=== PATIENT | female | born 1955 | race Caucasian/White ===

== ENCOUNTER → 2018-07-15 10:45 | Outpatient (CLI) | payer OTHER, SELFPAY ==
[2018-07-15 12:12] LABS: Add Manual Diff / Slide Review NO; Basophils Percent Auto 0.9 % (0-2); Hematocrit 41.5 % (36-46); Lymphocytes Percent Auto 38.1 % (25-40); Mean Corpuscular HGB Conc 33.8 % (30-36); Mean Corpuscular Hemoglobin 31.8 PG (26-34); Mean Corpuscular Volume 94.1 fL (80-100); Monocytes Percent Auto 7.6 % (3-14); Neutrophils Absolute Auto 2400 /uL (3000-5900); Neutrophils Percent Auto 50.4 % (50-75); Platelet Count 219 X10^3/uL (150-400); Red Blood Cell Count 4.41 X10^6/uL (4.0-5.2); White Blood Cell Count 4.9 X10^3/uL (4.5-11.0)
[2018-07-15 12:30] LABS: Alanine Aminotransferase 39 IU/L (9-52); Albumin 4.2 g/dL (3.5-5.0); Albumin Globulin Ratio 1.9 (1.0-2.8); Alkaline Phosphatase 50 U/L (38-126); Aspartate Aminotransferase 21 IU/L (14-36); BUN Creatinine Ratio 27.1 (6-22); Bilirubin Total 0.9 mg/dL (0.2-1.3); Blood Urea Nitrogen 19 mg/dL (7-17); Calcium 8.8 mg/dL (8.4-10.2); Carbon Dioxide 29 mmol/L (22-32); Chloride 104 mmol/L (98-107); Cholesterol 188 mg/dL (140-199); Estimated Glomerular Filt Rate > 60.0 mL/min (>60); Globulin 2.2 g/dL (1.7-4.1); Glucose 102 mg/dL (80-110); HDL Cholesterol 73 mg/dL (40-60); HEMOLYSIS < 15 (0-50); LDL Cholesterol Calculated 91 mg/dL (<100); Potassium 4.2 mmol/L (3.4-5.1); Sodium 143 mmol/L (137-145); Total Protein 6.4 g/dL (6.3-8.2); Triglycerides 121 mg/dL (35-150)
[2018-07-15 12:56] LABS: TSH w/ Reflex to FT4 0.45 uIU/mL (0.47-4.68)
[2018-07-15 13:31] LABS: Free T4, Direct Thyroxine 0.72 ng/dL (0.78-2.19)
== END ==
PROVIDERS: PCP Family Medicine; Visit Provider Family Medicine
DX: Z00.00 Encounter for general adult medical examination without abnormal findings (principal); E78.2 Mixed hyperlipidemia
CPT/HCPCS: 36415; 80053; 80061; 84439; 84443; 85025

== ENCOUNTER → 2019-02-25 10:30 | Outpatient (CLI) | payer OTHER, SELFPAY ==
[2019-02-25 12:17] LABS: Free T4, Direct Thyroxine 0.76 ng/dL (0.78-2.19)
[2019-02-25 12:31] LABS: Thyroid Stimulating Hormone 0.35 uIU/mL (0.47-4.68)
== END ==
PROVIDERS: PCP Family Medicine; Visit Provider Family Medicine
DX: R79.89 Other specified abnormal findings of blood chemistry (principal)
CPT/HCPCS: 36415; 84439; 84443; 84481

== ENCOUNTER → 2019-03-05 11:58 | Outpatient (CLI) | payer OTHER, SELFPAY ==
--- NOTE | 2019-03-05 11:59 | DI.US.S_ITS ---
PROCEDURE: US THYROID INDICATIONS: LOW THYROXINE AND LOW TSH TECHNIQUE: Real-time scanning was performed of the thyroid gland, with image documentation. COMPARISON: None. FINDINGS: Right: The right thyroid lobe measures 1.9 x 1.9 x 4.0 cm. At the upper right thyroid lobe there is a lobulated nodule which is hypoechoic, sharply demarcated, and contains several microcalcifications measuring up to 1.8 x 1.9 x 1.9 cm. The remainder of the thyroid echotexture is normal. Left: The left thyroid lobe measures up to 1.2 x 1.3 x 4.2 cm and at the junction of the middle and upper thirds of the left thyroid parenchyma there is a small ovoid nodule that measures only 2 x 3 x 4 mm. This is predominantly cystic, hypoechoic, smoothly marginated and free of calcification. Isthmus: 4 mm, normal in appearance. IMPRESSION: The upper lobe right-sided thyroid nodule would warrant fine needle cytology aspiration if clinically desired. The left thyroid nodule is of such a small size the no biopsy would be recommended. The thyroid glandular parenchymal appearance elsewhere appears normal. No adjacent adenopathy is seen. Dictated by: Bernard Rubio M.D. on 03/05/2019 at 17:27 Approved by: Bernard Rubio M.D. on 03/05/2019 at 17:30
== END ==
PROVIDERS: PCP Family Medicine; Visit Provider Family Medicine
DX: E04.2 Nontoxic multinodular goiter (principal); R94.6 Abnormal results of thyroid function studies; R79.89 Other specified abnormal findings of blood chemistry
CPT/HCPCS: 76536

== ENCOUNTER → 2019-03-29 10:02 | Outpatient (CLI) | payer OTHER, SELFPAY | PROVIDERS: PCP Family Medicine; Visit Provider Family Medicine | DX: E04.1 Nontoxic single thyroid nodule (principal) ==

== ENCOUNTER → 2019-04-02 09:35 | Outpatient (CLI) | payer OTHER, SELFPAY ==
--- NOTE | 2019-04-02 | DI.US.S_ITS ---
PROCEDURE: US FINE NEEDLE ASPIRATION INDICATIONS: RT THYROID NODULE TECHNIQUE: The indications, alternatives, benefits, risks, and complications of the procedure were explained to the patient. Written informed consent was obtained and placed in the chart. The thyroid region was examined sonographically and a site was chosen for ultrasound guided percutaneous sampling. The skin was prepared and draped in the usual fashion, and anesthetized with 1% lidocaine infiltrated from the skin down to the thyroid gland. Multiple passes were then performed, with contents emptied into an appropriate pathology specimen container. A bandage was applied to the area of access at completion of the study. COMPARISON: None. FINDINGS: Location(s) of lesion(s) sampled: Right superior thyroid nodule [place]: 25 gauge hypodermic needles. Number of passes: 8 total (2 with and 6 without aspiration) Medications: 1% lidocaine for local anaesthesia. Complications: None. IMPRESSION: Successful ultrasound-guided thyroid nodule fine needle aspiration, with cytology results pending. Please see chart below for management recommendations based on cytology results. [place] ReportingRecommendationsNon-diagnostic* Repeat US-guided FNA, with on-site cytology evaluation if possible. * Repeated non-diagnostic nodules without high suspicion US features: close observation vs surgical consult. * Consider surgery if nodule has high suspicion US features, grows >20% in 2 dimensions on followup, or patient has clinical risk factors for malignancy. Benign* If nodule has high suspicion US features: repeat US and FNA within 12 months. * If nodule has low to intermediate suspicion US features: repeat US at 12-24 months. If nodule grows (20% increase in at least 2 dimensions, with minimal increase of 2 mm or >50% change in volume), or development of new suspicious US features, then repeat FNA or continue followup. * If nodule has very low suspicion US features: followup US at >24 months. Atypia of undetermined significance, follicular lesion of undetermined significanceRepeat FNA, molecular testing, followup US, or surgical consult.Follicular neoplasm, suspicious for follicular neoplasmSurgical consult; also consider molecular testing. Suspicious for malignancySurgical consult.MalignantSurgical consult. Dictated by: Suresh Abad M.D. on 04/02/2019 at 13:24 Approved by: Suresh Abad M.D. on 04/02/2019 at 13:27
--- NOTE | 2019-04-02 | PATH_ITS ---
Note [facility] Accession Number: [id number] TESTS RESULT FLAG UNITS REF RANGE LAB Clinician Provided Cytology Information No. of containers..01 ThinPrep Vial No. of containers..04 Previously Prepared Cytology Slide 01 RIGHT THYROID NODULE DIAGNOSIS: 02 RIGHT THYROID NODULE: BENIGN. BETHESDA CATEGORY II. SPECIMEN CONSISTS OF BENIGN FOLLICULAR CELLS, HEMOSIDERIN-LADEN MACROPHAGES, COLLOID, AND BLOOD. THIS PATTERN IS CONSISTENT WITH A BENIGN FOLLICULAR NODULE. Pathologist ICD10: 02 E04.1 01 THE RIGHT THYROID LOBE MEASURES 1.9 X1.9 X 4.0 CM. AT THE UPPER RIGHT THYROID LOBE THERE IS A LOBULATED NODULE WHICH IS HYPOECHOIC, SHARPLY DEMARCATED, AND CONTAINS SEVERAL MICROCALCIFICATIONS MEASURING UP TO 1.8 X 1.9 X 1.9 CM. THE REMAINDER OF THE THYROID ECHOTEXTURE IS NORMAL. 02 Rika Meyers MD, Pathologist NPI- [id number] Sahil Franklin, Physician Office Specialist ([facility]) 01 20 CC, RED, CLEAR RECEIVED: 7 ALCOHOL FIXED AND 7 QUICK STAINED SLIDES WITH 1 RNA VIAL FOR FURTHER TESTING. /VDU FLAG LEGEND: L-Low Normal,H-High Normal,LL-Alert Low,HH-Alert High <-Panic Low,>-Panic High,A-Abnormal,AA-Critical Abnormal Performed at: 01 =Z [facility] [address] [place] [address] [address], [place] [address] Augie Nettles MD, 02 [facility] [id number] [address] [place] [address] Rika Meyers MD, Performed at: 01 [facility] [address] [place] [address], [place], [place] [id number] MD Augie Nettles MD Phone: [phone]
== END ==
PROVIDERS: PCP Family Medicine; Visit Provider Family Medicine
DX: E04.1 Nontoxic single thyroid nodule (principal)
CPT/HCPCS: 10005

== ENCOUNTER → 2019-04-28 12:28 | Outpatient (CLI) | payer OTHER, SELFPAY | PROVIDERS: PCP Family Medicine; Visit Provider Physician Assistant | DX: J02.9 Acute pharyngitis, unspecified (principal) | CPT/HCPCS: 87070 ==

== ENCOUNTER → 2019-06-30 17:12 | Outpatient (CLI) | payer OTHER, SELFPAY ==
--- NOTE | 2019-06-30 17:17 | DI.RAD.S_ITS ---
PROCEDURE: XR CHEST 2V INDICATIONS: Difficult swallowing TECHNIQUE: 2 views of the chest were acquired. COMPARISON: None. FINDINGS: Surgical changes and devices: None. Lungs and pleura: Lungs are clear. No pleural effusions or pneumothorax. Mediastinum: Mediastinal contours are normal. Heart size is normal. Bones and chest wall: No suspicious bony abnormalities. Degenerative changes are seen, which are worse involving the right shoulder. Soft tissues appear unremarkable. IMPRESSION: No imaging explanation is found for the patient's presenting history of difficulty swallowing. As clinically appropriate, consider dedicated, scheduled barium swallow examination. Dictated by: Onofre Wilson M.D. on 06/30/2019 at 16:41 Approved by: Onofre Wilson M.D. on 06/30/2019 at 16:42
== END ==
PROVIDERS: PCP Family Medicine; Visit Provider Nurse Practitioner
DX: R13.10 Dysphagia, unspecified (principal); K21.0 Gastro-esophageal reflux disease with esophagitis
CPT/HCPCS: 71046

== ENCOUNTER 2019-07-01 09:20 | Day surgery (SDC) | payer OTHER, SELFPAY ==
--- NOTE | 2019-07-01 | PATH_ITS ---
[facility] Accession Number: [id number] . 01 Material submitted: . esophagus, E-G Junction - GE JUNCTION ULCER . 02 Diagnosis: Gastroesophageal Junction, Ulcer, Biopsy: Ulcerated squamocolumnar junctional mucosa. Negative for intestinal metaplasia by alcian blue stain. Negative for fungal organisms by PAS stain. Negative for dysplasia and malignancy. MRV 07/05/2019 1509 Local . 02 Electronically signed: . Rika Meyers MD, Pathologist NPI- [id number] . 01 Gross description: . GE JUNCTION ULCER: Received in formalin are multiple fragment(s) of kay, soft tissue measuring 0.1 x 0.1 x 0.1 cm to 0.2 x 0.1 x 0.1 cm which is entirely submitted and submitted entirely in 1 cassette(s) /[facility] 07/01/2019 2047 Local . 02 Microscopic: . An AB/PAS stain was performed to evaluate for fungal organisms and intestinal metaplasia, and is negative for both, respectively. The control stain showed appropriate reactivity. . 02 Pathologist provided ICD-10: R10.9 . 02 CPT . 917898, 743090, 706712 Performed at: 01 [facility] [address] [facility] [address], [place], [place] [id number] MD Augie Nettles MD Phone: [phone] Performed at: 02 [facility] [address] [place], [place] [id number] MD Rika Meyers MD Phone: [phone]
[2019-07-01] MEDS: SODIUM CHLORIDE 0.9% 1,000 ML 200 ML IV (09:50)
[2019-07-01 09:51] VITALS: BP 187/84; PULSE 86; RESP 16; TEMP 37.2; O2SAT 100; BMI 27.4
--- NOTE | 2019-07-01 10:47 | PM.HP.1 ---
History of Present Illness History of Present Illness Date Patient Seen: 07/01/19 Time Patient Seen: 10:48 Chief complaint: [id number] Narrative: The patient is a woman who is been having trouble swallowing for about 8 months. Food would occasionally stick especially solids and she would take little sips of water and ultimately would pass. However yesterday she had a problem that required her to see a doctor and ultimately the obstructing food bolus did pass she is here for an EGD she was having symptoms of something was in her throat when she swallowed but that went away last night. Patient feels this in the area of her thoracic inlet. Patient History Medical History Colon polyps (Resolved 2013) Heartburn (Acute) Hypertension (Resolved 2008) Surgical History Anesthesia (Resolved) History of colonoscopy with polypectomy (Resolved 2013) History of lumpectomy (Resolved 1984) History of oral surgery (Resolved ~2005) History of partial hysterectomy (Resolved ~1985) Family History Father Cancer Heart disease Mother Cancer Social History household members: none Smoking Status: Never smoker Family & Social History Family History Father Cancer Heart disease Mother Cancer Social History: household members none Tobacco & Substance use: Smoking Status Never smoker Meds Home Medications and Allergies Home Medications Medication Instructions Recorded Confirmed Type Vitamin B-12 #0 10/08/16 06/30/19 History [probiotic] 2 cap PO DAILY #0 10/08/16 07/01/19 History [tumeric] 2 tab PO DAILY #0 10/08/16 06/30/19 History magnesium amino acid chelate 100 mg PO DAILY #0 10/08/16 07/01/19 History lisinopril 10 mg tablet 10 mg PO QDAY #90 tab 04/07/19 07/01/19 Rx simvastatin 10 mg tablet 10 mg PO QDAY #30 tab 04/12/19 07/01/19 Rx ibuprofen [Advil] 200 mg PO BEDTIME 07/01/19 07/01/19 History ibuprofen-diphenhydramine cit 1 cap PO BEDTIME 07/01/19 07/01/19 History [Advil PM] Allergies Allergy/AdvReac Type Severity Reaction Status Date / Time Penicillins [PENICILLINS] Allergy Mild Rash on Verified 07/01/19 09:43 abdomen Review of Systems Review of Systems ROS Unobtainable: All systems reviewed & are unremarkable except as noted in HPI and below Exam Vital Signs (past 8 hours): - 07/01/19 09:51 Temperature 98.9 F Pulse Rate 86 Respiratory Rate 16 Blood Pressure 187/84 H Pulse Oximetry 100 Oxygen Delivery Method Room Air Narrative Exam Narrative: Pleasant cooperative patient no apparent distress. Lungs are clear to auscultation. No rales or rhonchi. Heart regular rate and rhythm no murmur gallop. Abdomen is soft nontender without mass. No obvious hernias. Patient is alert and oriented x3. Assessment & Plan Assessment & Plan narrative: Patient for an EGD and possible dilatation. Possible biopsies. I have discussed this with the patient. Risks of bleeding and perforation were detailed. She appears to understand and wishes to proceed.
[2019-07-01] MEDS: LIDOCAINE 4% SOLN 50 ML 20 ML TOP (10:50)
--- NOTE | 2019-07-01 11:06 | PM.PREOP ---
Pre-operative Note Interval Note History & Physical reviewed/Exam performed by Physician: Yes Changes to H&P: No ASA Class (for procedural sedation): I
[2019-07-01] MEDS: MIDAZOLAM 5 MG/5 ML VIAL IV (11:15)
[2019-07-01] MEDS: fentaNYL 250 MCG/5 ML INJ IV (11:15)
--- NOTE | 2019-07-01 11:18 | PM.OP.ENDO ---
Operative Date/Time/Diagnoses Date of procedure: 07/01/19 Time of procedure: 11:19 Pre-op diagnosis: Dysphagia of solids Post-op diagnosis: same (Ulceration with narrowing of the distal esophagus. Possible Zamudio's esophagus. Possible neoplasm.) Procedure & Clinicians Study performed: EGD with cold biopsy Same procedure as scheduled: Yes Indications: Dysphagia Surgeon: Nicolas Mao Procedure Notes SCOAP/Timeout: Performed Procedure in detail: The patient had topical anesthetic applied to oropharynx. She was placed in left lateral decubitus position and underwent IV sedation directed by the surgeon consisting of fentanyl and Versed. A bite block was inserted and the scope was advanced through it into the esophagus. The proximal esophagus was unremarkable. GE junction was noted at 36 cm from the incisors. The patient had evidence of a Schatzki ring and ulceration with slightly heaped edges at the edge of the ulceration. There was narrowing but the scope fit through without difficulty. The patient was noted to have a hiatal hernia that measured between 2 and 3 cm. . The stomach insufflated well. There were no lesions seen in the body, antrum or at the incisura. The pyloric channel was unusually widely patent. The duodenum was unremarkable to the 4th part. The scope was brought back into the stomach and retroflexed. The proximal stomach was remarkable for a hiatal hernia seen from below. There were no other lesions appreciated.. The scope was straightened and brought out into the esophagus again. Multiple biopsies were taken at the GE junction and above paying special attention to any raised areas. The Schatzki ring was also biopsied. No other lesions were seen in the remainder the esophagus. The scope was removed and the patient tolerated the procedure well. I did not dilate her because of concern over the ulceration, friability, perforation, and the potential that this is neoplastic. Will await biopsy results and treat with double-dose proton pump inhibitors before determining if a repeat scope in dilatation is necessary. Scope withdrawal time: Not applicable Sedation minutes: 12 Findings: Zamudio's esophagus (Possible) and other findings (Esophageal ulceration distal esophagus with Schatzki ring) Specimen(s): other (Biopsies of the distal esophagus) Complications: none Post-procedure Recommendations: Will call with biopsy results (Or send letter depending upon findings) Plan for aftercare: Double-dose proton pump inhibitor Follow up: weeks (2-3) Disposition: PACU
[2019-07-01 11:22] VITALS: BP 143/78; PULSE 74; RESP 10; TEMP 36.3
[2019-07-01 11:33] VITALS: BP 121/72; PULSE 67; RESP 16; O2SAT 92
[2019-07-01 11:34] VITALS: BP 130/76; PULSE 67; RESP 12; TEMP 36.9; O2SAT 97
[2019-07-01] MEDS: PANTOPRAZOLE 40 MG PACKET PO (12:03)
--- NOTE | 2019-07-01 12:05 | SUR.PHASEII ---
HOB elevated, Rx given as ordered in applesauce, skin warm and dry, color pink, resp unlabored.
[2019-07-01 12:14] VITALS: BP 132/77; PULSE 61; RESP 15; TEMP 36.7; O2SAT 97
--- NOTE | 2019-07-01 12:27 | SUR.PHASEII ---
VSS, oral intake tolerated well, pt dressed independently, [employer] taxi called, escorted to ED entrance via [facility] with volunteer waiting for taxi to arrive
== END 2019-07-01 12:30 | disposition home or self-care (01) ==
PROVIDERS: Family Provider Family Medicine; PCP Family Medicine; Visit Provider Specialist
PROC: 0DJ08ZZ Inspection of Upper Intestinal Tract, Via Natural or Artificial Opening Endoscopic (ICD-10-PCS; CPT 43235; principal; 2019-07-01 10:45)
DX: R13.10 Dysphagia, unspecified (principal); K44.9 Diaphragmatic hernia without obstruction or gangrene; K22.2 Esophageal obstruction
CPT/HCPCS: 43239; 99152; J2250; J3010

== ENCOUNTER → 2019-08-09 09:18 | Outpatient (CLI) | payer OTHER, SELFPAY ==
[2019-08-09 10:10] LABS: Add Manual Diff / Slide Review NO; Basophils Absolute Auto 0 /uL (0-100); Eosinophils Absolute Auto 100 /uL (0-450); Eosinophils Percent Auto 2.6 % (2-4); Hematocrit 40.8 % (36-46); Hemoglobin 13.9 g/dL (12.0-16.0); Lymphocytes Absolute Auto 1700 /uL (1100-4500); Lymphocytes Percent Auto 36.6 % (25-40); Mean Corpuscular Hemoglobin 30.7 PG (26-34); Mean Corpuscular Volume 90.4 fL (80-100); Monocytes Absolute Auto 400 /uL (0-900); Monocytes Percent Auto 7.8 % (3-14); Neutrophils Absolute Auto 2400 /uL (1500-7000); Platelet Count 233 X10^3/uL (150-400); Red Blood Cell Count 4.52 X10^6/uL (4.0-5.2); Red Cell Distribution Width 12.7 % (11.6-14.8); White Blood Cell Count 4.6 X10^3/uL (4.5-11.0)
[2019-08-09 10:26] LABS: Alanine Aminotransferase 33 IU/L (<35); Albumin 3.8 g/dL (3.5-5.0); Albumin Globulin Ratio 1.7 (1.0-2.8); Alkaline Phosphatase 53 U/L (38-126); Aspartate Aminotransferase 23 IU/L (14-36); BUN Creatinine Ratio 17.1 (6-22); Bilirubin Total 0.6 mg/dL (0.2-1.3); Blood Urea Nitrogen 12 mg/dL (7-17); Calcium 9.1 mg/dL (8.4-10.2); Carbon Dioxide 28 mmol/L (22-32); Chloride 108 mmol/L (98-107); Cholesterol 148 mg/dL (140-199); Estimated Glomerular Filt Rate > 60.0 mL/min (>60); Globulin 2.3 g/dL (1.7-4.1); Glucose 102 mg/dL (80-110); HDL Cholesterol 42 mg/dL (40-60); HEMOLYSIS < 15 (0-50); LDL Cholesterol Calculated 79 mg/dL (<100); Lipase 61 U/L (23-300); Potassium 4.6 mmol/L (3.4-5.1); Sodium 143 mmol/L (137-145); Total Protein 6.1 g/dL (6.3-8.2); Triglycerides 137 mg/dL (35-150)
[2019-08-09 16:47] LABS: Creatinine Urine Random 45.2 mg/dL
[2019-08-09 17:00] LABS: Microalbumi Creatinin Ratio Ur 13.2 ug/mg CR (<30); Microalbumin Urine Random < 0.6 mg/dL (0-1.6)
== END ==
PROVIDERS: PCP Family Medicine; Visit Provider Family Medicine
DX: R10.11 Right upper quadrant pain (principal); M79.89 Other specified soft tissue disorders; I10 Essential (primary) hypertension
CPT/HCPCS: 36415; 80053; 80061; 82043; 82570; 83690; 85025

== ENCOUNTER → 2019-08-12 11:57 | Outpatient (CLI) | payer OTHER, SELFPAY ==
--- NOTE | 2019-08-12 | DI.MG.S_ITS ---
BILATERAL DIGITAL SCREENING MAMMOGRAM 3D/2D WITH CAD: 08/12/2019 CLINICAL: Routine screening. Comparison is made to exams dated: 06/16/2018 mammogram and 05/29/2017 mammogram - [facility]. There are scattered fibroglandular elements in both breasts. Current study was also evaluated with a Computer Aided Detection (CAD) system. No significant masses, calcifications, or other findings are seen in either breast. There has been no significant interval change. IMPRESSION: NEGATIVE There is no mammographic evidence of malignancy. A 1 year screening mammogram is recommended. This exam was interpreted at Station ID: [id number]. NOTE: For mammograms, a report in lay terms will be sent to the patient. Approximately 15% of breast malignancies will not be visualized mammographically. In the management of a palpable breast mass, a negative mammogram must not discourage biopsy of a clinically suspicious lesion. Electronically Signed By: Vini guillermo/george:08/12/2019 21:02:31 letter sent: Normal Exam ACR BI-RADS Category 1: Negative 3341F
== END ==
PROVIDERS: PCP Family Medicine; Visit Provider Family Medicine
DX: Z12.31 Encounter for screening mammogram for malignant neoplasm of breast (principal)
CPT/HCPCS: 77063; 77067

== ENCOUNTER 2019-08-24 08:22 | Day surgery (SDC) | payer OTHER, SELFPAY ==
--- NOTE | 2019-08-24 | PATH_ITS ---
[facility] Accession Number: [id number] . 01 Material submitted: . PART A: esophagus, E-G Junction - GASTROESOPHAGEAL JUNCTION BIOPSY PART B: gastrointestinal site - GASTRIC POLYP . 01 Clinical history: . EGD . 02 Diagnosis: A. Gastroesophageal Junction, Biopsy: Squamocolumnar junctional mucosa with mild chronic inflammation. Negative for specialized intestinal metaplasia, dysplasia or malignancy. . B. Gastric Polyp, Biopsy: Most consistent with gastric hyperplastic polyp. No evidence of Helicobacter organisms on H/E stain. Negative for intestinal metaplasia. Negative for dysplasia and malignancy. . [facility] 08/25/2019 0938 Local . 02 Electronically signed: . Neftaly Elliott MD, PhD, Pathologist NPI- [id number] . 01 Gross description: . Part A: GASTROESOPHAGEAL JUNCTION BIOPSY: Received in formalin are 3 fragment(s) of kay, soft tissue measuring 0.1 x 0.1 x 0.1 cm to 0.3 x 0.2 x 0.1 cm submitted entirely in 1 cassette(s) Part B: GASTRIC POLYP: Received in formalin are 2 fragment(s) of kay, soft tissue measuring 0.1 x 0.1 x 0.1 cm to 0.2 x 0.2 x 0.2 cm submitted entirely in 1 cassette(s) /[facility] 08/24/2019 1920 Local . 02 Pathologist provided ICD-10: K20.9, K31.7 . 02 CPT . 197487, 634849 Performed at: 01 [facility] [address], [place], [place] [id number] MD Augie Nettles MD Phone: [phone] Performed at: 02 [facility] [address] [place] [id number] MD Rika Meyers MD Phone: [phone]
[2019-08-24] MEDS: SODIUM CHLORIDE 0.9% 1,000 ML 200 ML IV (09:50)
[2019-08-24 10:01] VITALS: BP 138/70; PULSE 58; RESP 16; TEMP 36.4; O2SAT 100; BMI 28.5
--- NOTE | 2019-08-24 10:16 | PM.PREOP ---
Pre-operative Note Interval Note History & Physical reviewed/Exam performed by Physician: Yes Changes to H&P: No ASA Class (for procedural sedation): II
--- NOTE | 2019-08-24 10:45 | PM.OP.ENDO ---
Operative Date/Time/Diagnoses Date of procedure: 08/24/19 Time of procedure: 10:45 Pre-op diagnosis: History esophageal ulcer Post-op diagnosis: same (Ulcers healed) Procedure & Clinicians Study performed: EGD with cold biopsy and through the scope balloon dilatation to 15 mm Same procedure as scheduled: Yes Indications: History of dysphagia and a esophageal ulcer brought back to confirm healing Surgeon: Nicolas Mao Procedure Notes SCOAP/Timeout: Performed Procedure in detail: The patient had topical anesthetic applied to oropharynx. She was placed in left lateral decubitus position and underwent IV sedation directed by the surgeon consisting of fentanyl and Versed. A bite block was inserted and the scope was advanced through it into the esophagus. The esophagus was unremarkable. GE junction was noted at 35 cm from the incisors there was a Schatzki ring in the distal esophagus with mild narrowing. There was also a small diverticulum just above the Schatzki ring. The stomach insufflated well. There were no lesions seen in the body, antrum or at the incisura. The pyloric channel was patent. The duodenum was unremarkable to the 4th part. The scope was brought back into the stomach and retroflexed. The proximal stomach at a small verrucous like lesion which I biopsied and appeared to be removed.. The scope was straightened and brought out through the esophagus again. Biopsies were taken at the Schatzki ring and then a balloon dilatation performed from 12-15 mm diameter in progression. No lesions were seen. The scope was removed and the patient tolerated the procedure well. The scope was removed Scope withdrawal time: Not applicable Sedation minutes: 17 Specimen(s): other (GE junction biopsies and gastric polyp biopsy) Complications: none Post-procedure Recommendations: Continue medication(s) (But can reduced to once a day) Plan for aftercare: Follow-up with her family doctor Follow up: as needed Disposition: PACU
[2019-08-24] MEDS: MIDAZOLAM 5 MG/5 ML VIAL IV (10:46)
[2019-08-24] MEDS: LIDOCAINE 4% SOLN 50 ML 20 ML TOP (10:46)
[2019-08-24] MEDS: fentaNYL 250 MCG/5 ML INJ IV (10:47)
[2019-08-24 10:55] VITALS: BP 118/76; PULSE 70; RESP 12; TEMP 36.7; O2SAT 96
[2019-08-24 10:57] VITALS: BP 111/59; PULSE 59; RESP 12; O2SAT 97
--- NOTE | 2019-08-24 10:59 | SUR.PHASEII ---
Discharge order for taxi placed by Jeferson
[2019-08-24 11:16] VITALS: BP 116/67; PULSE 57; RESP 16; TEMP 36.5; O2SAT 100
== END 2019-08-24 11:45 | disposition home or self-care (01) ==
PROVIDERS: PCP Family Medicine; Visit Provider Specialist
PROC: 0DJ08ZZ Inspection of Upper Intestinal Tract, Via Natural or Artificial Opening Endoscopic (ICD-10-PCS; CPT 43235; principal; 2019-08-24 09:45)
DX: K20.9 Esophagitis, unspecified (principal); K22.2 Esophageal obstruction; K31.7 Polyp of stomach and duodenum
CPT/HCPCS: 43249; 43239; 99152; J2250; J3010

== ENCOUNTER → 2020-08-28 10:36 | Outpatient (CLI) | payer OTHER, SELFPAY ==
--- NOTE | 2020-08-28 10:38 | DI.MG.S_ITS ---
BILATERAL DIGITAL SCREENING MAMMOGRAM 3D/2D WITH CAD: 08/28/2020 CLINICAL: Routine screening. Family history of breast cancer. Comparison is made to exams dated: 08/12/2019 mammogram - [facility], 06/16/2018 mammogram, and 05/29/2017 mammogram - [facility]. There are scattered fibroglandular elements in both breasts. Current study was also evaluated with a Computer Aided Detection (CAD) system. No significant masses, calcifications, or other findings are seen in either breast. There has been no significant interval change. IMPRESSION: NEGATIVE There is no mammographic evidence of malignancy. A 1 year screening mammogram is recommended. This exam was interpreted at Station ID: [id number]. NOTE: For mammograms, a report in lay terms will be sent to the patient. Approximately 15% of breast malignancies will not be visualized mammographically. In the management of a palpable breast mass, a negative mammogram must not discourage biopsy of a clinically suspicious lesion. Electronically Signed By: Castillo Raymundo acr/george:08/28/2020 13:42:36 letter sent: Normal Exam ACR BI-RADS Category 1: Negative 3341F
== END ==
PROVIDERS: PCP Family Medicine; Referring Provider Family Medicine; Visit Provider Family Medicine
DX: Z12.31 Encounter for screening mammogram for malignant neoplasm of breast (principal); Z80.3 Family history of malignant neoplasm of breast
CPT/HCPCS: 77063; 77067

== ENCOUNTER → 2020-10-16 11:14 | Outpatient (CLI) | payer OTHER, SELFPAY ==
[2020-10-16 12:19] LABS: Add Manual Diff / Slide Review NO; Basophils Absolute Auto 0 /uL (0-100); Basophils Percent Auto 0.8 % (0-2); Eosinophils Absolute Auto 100 /uL (0-450); Hematocrit 41.6 % (36-46); Hemoglobin 13.7 g/dL (12.0-16.0); Lymphocytes Absolute Auto 1600 /uL (1100-4500); Lymphocytes Percent Auto 36.8 % (25-40); Mean Corpuscular Hemoglobin 30.5 PG (26-34); Mean Corpuscular Volume 92.5 fL (80-100); Monocytes Absolute Auto 300 /uL (0-900); Monocytes Percent Auto 6.8 % (3-14); Neutrophils Absolute Auto 2400 /uL (1500-7000); Neutrophils Percent Auto 52.6 % (50-75); Platelet Count 264 X10^3/uL (150-400); Red Cell Distribution Width 12.6 % (11.6-14.8); White Blood Cell Count 4.5 X10^3/uL (4.5-11.0)
[2020-10-16 12:39] LABS: Alanine Aminotransferase 24 IU/L (<35); Albumin 4.1 g/dL (3.5-5.0); Albumin Globulin Ratio 1.8 (1.0-2.8); Alkaline Phosphatase 56 U/L (38-126); Aspartate Aminotransferase 20 IU/L (14-36); BUN Creatinine Ratio 28.6 (6-22); Bilirubin Total 0.6 mg/dL (0.2-1.3); Blood Urea Nitrogen 16 mg/dL (7-17); Calcium 8.7 mg/dL (8.4-10.2); Carbon Dioxide 30 mmol/L (22-32); Chloride 105 mmol/L (98-107); Cholesterol 186 mg/dL (140-199); Estimated Glomerular Filt Rate > 60.0 mL/min (>60); Globulin 2.3 g/dL (1.7-4.1); Glucose 102 mg/dL (80-110); HDL Cholesterol 59 mg/dL (40-60); HEMOLYSIS < 15 (0-50); LDL Cholesterol Calculated 71 mg/dL (<100); Potassium 4.5 mmol/L (3.4-5.1); Sodium 138 mmol/L (137-145); Total Protein 6.4 g/dL (6.3-8.2); Triglycerides 278 mg/dL (35-150)
[2020-10-16 13:05] LABS: Thyroid Stimulating Hormone 0.302 uIU/mL (0.47-4.68)
[2020-10-16 16:02] LABS: Microalbumin Urine Random 4.5 mg/dL (0-1.6)
[2020-10-16 16:05] LABS: Creatinine Urine Random 144.8 mg/dL
== END ==
PROVIDERS: PCP Family Medicine; Referring Provider Family Medicine; Visit Provider Family Medicine
DX: E03.9 Hypothyroidism, unspecified (principal); I10 Essential (primary) hypertension; E78.5 Hyperlipidemia, unspecified; Z13.29 Encounter for screening for other suspected endocrine disorder
CPT/HCPCS: 80053; 80061; 82043; 82570; 84439; 84443; 85025

== ENCOUNTER → 2021-03-13 11:13 | Outpatient (CLI) | payer OTHER, SELFPAY ==
[2021-03-13 11:18] LABS: Bacteria Urine None Seen
[2021-03-13 12:04] LABS: Appearance Urine UA CLEAR; Bilirubin Urine UA NEGATIVE (NEGATIVE); Color Urine UA YELLOW; Glucose Urine UA NEGATIVE (Negative); Ketones Urine UA NEGATIVE (NEGATIVE); Leukocyte Esterase Urine UA NEGATIVE (NEGATIVE); Nitrite Urine UA NEGATIVE (Negative); Occult Blood Urine UA NEGATIVE (Negative); Protein Urine UA NEGATIVE (Negative); Specific Gravity Urine UA 1.025 (1.000-1.035); Urobilinogen Urine UA 0.2 E.U./dL (0.2)
[2021-03-13 12:35] LABS: Culture Indicated Urine Cult Not Indicated; RBC Urine 0-1/HPF (0-5/HPF); Squamous Epithelial Cell Urine 0-1 /HPF (0-5/HPF); WBC Urine 0-1/HPF (0-5/HPF)
[2021-03-13 12:40] LABS: Alanine Aminotransferase 42 IU/L (<35); Albumin 4.2 g/dL (3.5-5.0); Albumin Globulin Ratio 1.8 (1.0-2.8); Alkaline Phosphatase 58 U/L (38-126); Aspartate Aminotransferase 32 IU/L (14-36); BUN Creatinine Ratio 16.7 (6-22); Bilirubin Total 0.9 mg/dL (0.2-1.3); Blood Urea Nitrogen 10 mg/dL (7-17); Calcium 9.3 mg/dL (8.4-10.2); Carbon Dioxide 24 mmol/L (22-32); Chloride 108 mmol/L (98-107); Estimated Glomerular Filt Rate > 60.0 mL/min (>60); Globulin 2.3 g/dL (1.7-4.1); Glucose 106 mg/dL (80-110); HEMOLYSIS < 15 (0-50); Potassium 4.6 mmol/L (3.4-5.1); Sodium 140 mmol/L (137-145); Total Protein 6.5 g/dL (6.3-8.2)
== END ==
PROVIDERS: PCP Family Medicine; Referring Provider Family Medicine; Visit Provider Family Medicine
DX: R10.9 Unspecified abdominal pain (principal); R10.11 Right upper quadrant pain
CPT/HCPCS: 36415; 80053; 81001

== ENCOUNTER → 2021-06-20 10:39 | Outpatient (CLI) | payer OTHER, SELFPAY ==
[2021-06-20 11:49] LABS: Alanine Aminotransferase 19 IU/L (<35); Albumin 4.3 g/dL (3.5-5.0); Albumin Globulin Ratio 1.9 (1.0-2.8); Alkaline Phosphatase 58 U/L (38-126); Aspartate Aminotransferase 17 IU/L (14-36); BUN Creatinine Ratio 21.9 (6-22); Bilirubin Total 0.8 mg/dL (0.2-1.3); Blood Urea Nitrogen 14 mg/dL (7-17); Calcium 9.3 mg/dL (8.4-10.2); Carbon Dioxide 29 mmol/L (22-32); Chloride 107 mmol/L (98-107); Estimated Glomerular Filt Rate > 60.0 mL/min (>60); Globulin 2.3 g/dL (1.7-4.1); Glucose 101 mg/dL (80-110); HEMOLYSIS < 15 (0-50); Potassium 4.5 mmol/L (3.4-5.1); Sodium 142 mmol/L (137-145); Total Protein 6.6 g/dL (6.3-8.2)
== END ==
PROVIDERS: PCP Family Medicine; Referring Provider Family Medicine; Visit Provider Family Medicine
DX: R74.8 Abnormal levels of other serum enzymes (principal)
CPT/HCPCS: 36415; 80053

== ENCOUNTER → 2021-08-29 14:46 | Outpatient (CLI) | payer OTHER, SELFPAY ==
--- NOTE | 2021-08-29 | DI.MG.S_ITS ---
BILATERAL DIGITAL SCREENING MAMMOGRAM 3D/2D WITH CAD: 08/29/2021 CLINICAL: Routine screening. Family history of breast cancer. Comparison is made to exams dated: 08/28/2020 mammogram, 08/12/2019 mammogram - [facility], and 06/16/2018 mammogram - [facility]. There are scattered fibroglandular elements in both breasts. Current study was also evaluated with a Computer Aided Detection (CAD) system. No significant masses, calcifications, or other findings are seen in either breast. There has been no significant interval change. IMPRESSION: NEGATIVE There is no mammographic evidence of malignancy. A 1 year screening mammogram is recommended. This exam was interpreted at Station ID: [id number]. NOTE: For mammograms, a report in lay terms will be sent to the patient. Approximately 15% of breast malignancies will not be visualized mammographically. In the management of a palpable breast mass, a negative mammogram must not discourage biopsy of a clinically suspicious lesion. Electronically Signed By: Darin Harper M.D., jr/george:08/29/2021 15:36:17 letter sent: Normal Exam ACR BI-RADS Category 1: Negative 3341F
== END ==
PROVIDERS: PCP Family Medicine; Referring Provider Family Medicine; Visit Provider Family Medicine
DX: Z12.31 Encounter for screening mammogram for malignant neoplasm of breast (principal); Z80.3 Family history of malignant neoplasm of breast
CPT/HCPCS: 77063; 77067

== ENCOUNTER → 2022-08-01 11:15 | Outpatient (CLI) | payer OTHER, SELFPAY ==
[2022-08-01 12:33] LABS: Add Manual Diff / Slide Review NO; Basophils Absolute Auto 0 /uL (0-100); Basophils Percent Auto 0.8 % (0-2); Eosinophils Absolute Auto 100 /uL (0-450); Hematocrit 40.9 % (36-46); Hemoglobin 13.9 g/dL (12.0-16.0); Lymphocytes Absolute Auto 1500 /uL (1100-4500); Lymphocytes Percent Auto 30.6 % (25-40); Mean Corpuscular Hemoglobin 30.9 PG (26-34); Monocytes Absolute Auto 400 /uL (0-900); Monocytes Percent Auto 7.1 % (3-14); Neutrophils Absolute Auto 3000 /uL (1500-7000); Neutrophils Percent Auto 59.5 % (50-75); Platelet Count 240 X10^3/uL (150-400); Red Cell Distribution Width 13.7 % (11.6-14.8)
[2022-08-01 14:09] LABS: Alanine Aminotransferase 33 IU/L (<35); Albumin 4.1 g/dL (3.5-5.0); Albumin Globulin Ratio 1.9 (1.0-2.8); Alkaline Phosphatase 58 U/L (38-126); Aspartate Aminotransferase 22 IU/L (14-36); BUN Creatinine Ratio 22.7 (6-22); Bilirubin Total 0.7 mg/dL (0.2-1.3); Blood Urea Nitrogen 15 mg/dL (7-17); Calcium 9.1 mg/dL (8.4-10.2); Carbon Dioxide 26 mmol/L (22-32); Chloride 102 mmol/L (98-107); Cholesterol 195 mg/dL (140-199); Estimated Glomerular Filt Rate > 60 mL/min (>60); Globulin 2.2 g/dL (1.7-4.1); Glucose 99 mg/dL (80-110); HDL Cholesterol 71 mg/dL (40-60); HEMOLYSIS < 15 (0-50); LDL Cholesterol Calculated 73 mg/dL (<100); Sodium 138 mmol/L (137-145); Total Protein 6.3 g/dL (6.3-8.2); Triglycerides 257 mg/dL (35-150)
[2022-08-01 14:27] LABS: Thyroid Stimulating Hormone 0.112 uIU/mL (0.47-4.68)
[2022-08-02 18:05] LABS: T4 Total Thyroxine 5.81 ug/dL (5.5-11.0)
[2022-08-03 07:31] LABS: Triiodothyronine T3 Total 104 ng/dL (71-180)
== END ==
PROVIDERS: PCP Family Medicine; Referring Provider Family Medicine; Visit Provider Family Medicine
DX: E78.5 Hyperlipidemia, unspecified (principal); I10 Essential (primary) hypertension; R94.6 Abnormal results of thyroid function studies; K21.00 Gastro-esophageal reflux disease with esophagitis, without bleeding
CPT/HCPCS: 36415; 80053; 80061; 84436; 84443; 84480; 85025

== ENCOUNTER → 2022-09-04 10:50 | Outpatient (CLI) | payer OTHER, SELFPAY ==
--- NOTE | 2022-09-04 10:52 | DI.MG.S_ITS ---
BILATERAL DIGITAL SCREENING MAMMOGRAM 3D/2D WITH CAD: 09/04/2022 CLINICAL: Routine screening. Family history of breast cancer. Comparison is made to exams dated: 08/29/2021 mammogram, 08/28/2020 mammogram, and 08/12/2019 mammogram - [facility]. There are scattered areas of fibroglandular density in both breasts (category b / 25%-50% glandular tissue). Current study was also evaluated with a Computer Aided Detection (CAD) system. There are benign calcifications in both breasts. There is a mole marker on the right breast. No significant masses, calcifications, or other findings are seen in either breast. There has been no significant interval change. IMPRESSION: BENIGN There is no mammographic evidence of malignancy. A 1 year screening mammogram is recommended. Based on the Tyrer Cuzick model (a risk assessment model) the patient's lifetime risk is 7.0% and her 10 year risk is 3.9%. According to the ACR, ACS, and NCCN guidelines, an annual breast MRI exam along with mammogram is recommended if the patient's lifetime risk is 20% or greater. This exam was interpreted at Station ID: [id number]. NOTE: For mammograms, a report in lay terms will be sent to the patient. Approximately 15% of breast malignancies will not be visualized mammographically. In the management of a palpable breast mass, a negative mammogram must not discourage biopsy of a clinically suspicious lesion. Electronically Signed By: Castillo liu/george:09/04/2022 15:01:47 letter sent: Normal Exam ACR BI-RADS Category 2: Benign Finding(s) 3342F
== END ==
PROVIDERS: PCP Family Medicine; Referring Provider Family Medicine; Visit Provider Family Medicine
DX: Z12.31 Encounter for screening mammogram for malignant neoplasm of breast (principal); Z80.3 Family history of malignant neoplasm of breast
CPT/HCPCS: 77063; 77067

== ENCOUNTER → 2022-09-18 15:36 | Outpatient (CLI) | payer OTHER, SELFPAY ==
[2022-09-18 16:59] LABS: COVID-19 CEPHEID 4-PLEX PCR Negative (Negative); Influenza A - CEPHEID Flu A NEGATIVE (NEGATIVE); Influenza B - CEPHEID Flu B NEGATIVE (NEGATIVE); Respiratory Syncytial Virus Negative (Negative)
== END ==
PROVIDERS: PCP Family Medicine; Visit Provider Nurse Practitioner Family
DX: R19.7 Diarrhea, unspecified (principal); Z20.828 Contact with and (suspected) exposure to other viral communicable diseases
CPT/HCPCS: 0241U

== ENCOUNTER → 2023-02-19 10:29 | Outpatient (CLI) | payer OTHER, SELFPAY ==
[2023-02-19 11:50] LABS: Cholesterol 208 mg/dL (140-199); HDL Cholesterol 73 mg/dL (40-60); LDL Cholesterol Calculated 115 mg/dL (<100); Triglycerides 101 mg/dL (35-150)
[2023-02-19 16:01] LABS: Creatinine Urine Random 42.9 mg/dL
[2023-02-19 16:05] LABS: Microalbumi Creatinin Ratio Ur 46.6 ug/mg CR (<30)
== END ==
PROVIDERS: PCP Family Medicine; Referring Provider Family Medicine; Visit Provider Family Medicine
DX: I10 Essential (primary) hypertension (principal); E78.5 Hyperlipidemia, unspecified
CPT/HCPCS: 36415; 80061; 82043; 82570

== ENCOUNTER 2023-06-13 07:35 | Day surgery (SDC) | payer OTHER, SELFPAY ==
[2023-06-13 08:11] VITALS: BP 160/80; PULSE 99; RESP 16; TEMP 36.6; BMI 31.2
[2023-06-13] MEDS: LACTATED RINGERS 1,000 ML 100 ML IV ×2 (08:54→08:55)
--- NOTE | 2023-06-13 08:59 | PM.HP.1 ---
History of Present Illness History of Present Illness Date Patient Seen: 06/13/23 Time Patient Seen: 08:59 Chief complaint: Screening Colonoscopy Narrative: This is her forth colonoscopy a single polyp was found on her second scope. no symptoms PFSH Medical History Colon polyps (2013) Heartburn Hypertension (2008) Surgical History Anesthesia History of colonoscopy with polypectomy (2013) History of lumpectomy (1984) History of oral surgery (~2005) History of partial hysterectomy (~1985) Family History Father Cancer Heart disease Mother Cancer Social History marital status: number of children: 2 household members: none and other lives independently: Yes caregiver/support person: No housing: house Smoking Status: Never smoker second hand exposure: No alcohol intake: current substance use type: does not use Meds Home Medications and Allergies Home Medications Medication Instructions Recorded Confirmed Type [probiotic] 2 cap PO DAILY ##0 10/08/16 02/26/23 History [tumeric] 2 tab PO DAILY ##0 10/08/16 02/26/23 History cyanocobalamin (vitamin B-12) 250 250 mcg PO DAILY ##0 10/08/16 02/26/23 History mcg tablet (Vitamin B-12) omeprazole 20 mg capsule,delayed 20 mg PO DAILY Gastroesophageal 08/24/19 06/13/23 Rx release reflux disease #30 caps simvastatin 10 mg tablet See Rx Instructions .Route 03/24/23 06/13/23 Rx .COMPLEX #90 tabs lisinopril 10 mg tablet 10 mg PO DAILY #90 tabs 04/18/23 06/13/23 Rx lisinopril 10 mg tablet 10 mg PO DAILY 06/13/23 06/13/23 History Allergies Allergy/AdvReac Type Severity Reaction Status Date / Time Penicillins [PENICILLINS] Allergy Mild Rash on Verified 06/13/23 08:05 abdomen Review of Systems Review of Systems ROS: Yes All systems reviewed with the patient and are negative except as otherwise documented Exam Vital Signs (past 8 hours): - 06/13/23 08:11 Temperature 98 F Pulse Rate 99 H Respiratory Rate 16 Blood Pressure 160/80 H Oxygen Delivery Method Room Air Oxygen Delivery Method Room Air Const General: cooperative, healthy appearing and comfortable HENMA Head: normal to inspection and normocephalic Face and sinus: normal facial exam Eyes General: appearance normal, both eyes and all related structures Neck Neck: trachea midline Resp Effort & Inspection: normal respiratory effort and able to speak in complete sentences Cardio Rate: regular rate Rhythm: regular rhythm GI Palpation: soft Skin General: turgor normal Neuro General: patient alert, patient awake and patient oriented x3 Cognition: normal cognition Psych Appearance: grossly normal Judgment: judgment good Assessment & Plan Assessment & Plan narrative: Screening colonoscopy with distal h/o polyp colonoscopy with sedation Time Spent With Patient Time with patient: less than 30 minutes
--- NOTE | 2023-06-13 09:23 | PM.OP.COLON ---
Operative Date/Time/Diagnoses Date of procedure: 06/13/23 Time of procedure: 09:24 Pre-op diagnosis: Screening colonoscopy with a distal history of colon polyp Post-op diagnosis: same Procedure & Clinicians Study performed: Colonoscopy with anesthetic Same procedure as scheduled: Yes Indications: Colon cancer screening Surgeon: Erika Carlos Procedure Notes Procedure in detail: Preop diagnosis: Colon cancer screening with a distant history of colon polyp Postop diagnosis: Same Operative procedure: Colonoscopy with anesthetic Surgeon: Unique Carlos MD Findings: No polyps, no diverticulosis. Procedure: Patient placed in a lateral position. Rectal exam performed showing normal tone no masses. Colonoscope inserted into the rectum and advanced to ileocecal valve with minimal difficulty. Insufflation extraction of the scope including retroflex in the rectum had the above findings. Impression: No polyps identified. Plan: Repeat colonoscopy 7 years, sooner if clinical conditions require. Specimen(s): none sent Complications: none Post-procedure Recommendations: Colonoscopy in 5 years (7 years) Follow up: as needed Disposition: PACU
[2023-06-13 09:26] VITALS: BP 148/71; PULSE 82; RESP 16; TEMP 36.5; O2SAT 99
[2023-06-13 09:31] VITALS: BP 152/80; PULSE 71; RESP 13; O2SAT 99
[2023-06-13 09:36] VITALS: PULSE 72; RESP 14; O2SAT 96
[2023-06-13 09:46] VITALS: BP 164/79; PULSE 66; RESP 16; TEMP 36.5; O2SAT 100
== END 2023-06-13 09:58 | disposition home or self-care (01) ==
PROVIDERS: PCP Family Medicine; Referring Provider Surgery; Visit Provider Surgery
PROC: 0DJD8ZZ Inspection of Lower Intestinal Tract, Via Natural or Artificial Opening Endoscopic (ICD-10-PCS; CPT 45378; principal; 2023-06-13 08:45)
DX: Z12.11 Encounter for screening for malignant neoplasm of colon (principal); Z86.010 Personal history of colon polyps
CPT/HCPCS: G0105; J2704

== ENCOUNTER → 2023-08-04 11:13 | Outpatient (CLI) | payer OTHER, SELFPAY ==
[2023-08-04 12:32] LABS: Alanine Aminotransferase 36 IU/L (<35); Albumin 4.2 g/dL (3.5-5.0); Albumin Globulin Ratio 1.4 (1.0-2.8); Alkaline Phosphatase 58 U/L (38-126); Aspartate Aminotransferase 26 IU/L (14-36); BUN Creatinine Ratio 23.5 (6-22); Bilirubin Total 0.7 mg/dL (0.2-1.3); Blood Urea Nitrogen 20 mg/dL (7-17); Calcium 9.4 mg/dL (8.4-10.2); Carbon Dioxide 25 mmol/L (22-32); Chloride 105 mmol/L (98-107); Cholesterol 198 mg/dL (140-199); Estimated Glomerular Filt Rate > 60 mL/min (>60); Glucose 114 mg/dL (80-110); HDL Cholesterol 61 mg/dL (40-60); HEMOLYSIS < 15 (0-50); LDL Cholesterol Calculated 103 mg/dL (<100); Potassium 4.2 mmol/L (3.4-5.1); Sodium 140 mmol/L (137-145); Total Protein 7.2 g/dL (6.3-8.2); Triglycerides 172 mg/dL (35-150)
[2023-08-04 12:47] LABS: Free T3, Triiodothyronine Free 4.35 pg/mL (2.77-5.27); Free T4, Direct Thyroxine 0.94 ng/dL (0.78-2.19)
[2023-08-04 13:17] LABS: Thyroid Stimulating Hormone < 0.015 uIU/mL (0.47-4.68)
[2023-08-04 14:22] LABS: Microalbumi Creatinin Ratio Ur 135.2 ug/mg CR (<30); Microalbumin Urine Random 14.2 mg/dL (0-1.6)
== END ==
PROVIDERS: PCP Family Medicine; Referring Provider Family Medicine; Visit Provider Family Medicine
DX: I10 Essential (primary) hypertension (principal); E05.90 Thyrotoxicosis, unspecified without thyrotoxic crisis or storm
CPT/HCPCS: 36415; 80053; 80061; 82043; 82570; 84439; 84443; 84481

== ENCOUNTER → 2023-08-06 12:24 | Outpatient (CLI) | payer OTHER, SELFPAY ==
[2023-08-06 13:30] LABS: Hemoglobin A1C% w Est Avg Glu 5.8 % (4.0-6.0)
== END ==
PROVIDERS: PCP Family Medicine; Referring Provider Family Medicine; Visit Provider Family Medicine
DX: I10 Essential (primary) hypertension (principal); Z13.9 Encounter for screening, unspecified
CPT/HCPCS: 36415; 83036

== ENCOUNTER → 2023-09-10 12:53 | Outpatient (CLI) | payer OTHER, SELFPAY ==
--- NOTE | 2023-09-10 | DI.MG.S_ITS ---
BILATERAL DIGITAL SCREENING MAMMOGRAM 3D/2D WITH CAD: 09/10/2023 CLINICAL: Routine screening. Family history of breast cancer. Comparison is made to exams dated: 09/04/2022 mammogram, 08/29/2021 mammogram, 08/28/2020 mammogram, and 08/12/2019 mammogram - [facility]. There are scattered areas of fibroglandular density in both breasts (category b / 25%-50% glandular tissue). Current study was also evaluated with a Computer Aided Detection (CAD) system. There are benign calcifications in both breasts. There also are benign post operative findings in the right breast. No significant masses, calcifications, or other findings are seen in either breast. There has been no significant interval change. IMPRESSION: BENIGN There is no mammographic evidence of malignancy. A 1 year screening mammogram is recommended. Based on the Tyrer Cuzick model (a risk assessment model) the patient's lifetime risk is 6.6% and her 10 year risk is 3.9%. According to the ACR, ACS, and NCCN guidelines, an annual breast MRI exam along with mammogram is recommended if the patient's lifetime risk is 20% or greater. This exam was interpreted at Station ID: [id number]. NOTE: For mammograms, a report in lay terms will be sent to the patient. Approximately 15% of breast malignancies will not be visualized mammographically. In the management of a palpable breast mass, a negative mammogram must not discourage biopsy of a clinically suspicious lesion. Electronically Signed By: Vini guillermo/george:09/10/2023 17:37:56 letter sent: Normal Exam ACR BI-RADS Category 2: Benign Finding(s) 3342F
== END ==
PROVIDERS: PCP Family Medicine; Referring Provider Family Medicine; Visit Provider Family Medicine
DX: Z12.31 Encounter for screening mammogram for malignant neoplasm of breast (principal); Z80.3 Family history of malignant neoplasm of breast
CPT/HCPCS: 77063; 77067

== ENCOUNTER → 2024-02-19 09:52 | Outpatient (CLI) | payer OTHER, SELFPAY ==
[2024-02-19 11:12] LABS: Hemoglobin A1C% w Est Avg Glu 5.5 % (4.0-6.0)
[2024-02-19 11:30] LABS: Alanine Aminotransferase 40 IU/L (<35); Albumin 4.2 g/dL (3.5-5.0); Albumin Globulin Ratio 1.8 (1.0-2.8); Alkaline Phosphatase 52 U/L (38-126); Aspartate Aminotransferase 28 IU/L (14-36); BUN Creatinine Ratio 26.3 (6-22); Bilirubin Total 0.9 mg/dL (0.2-1.3); Blood Urea Nitrogen 20 mg/dL (7-17); Calcium 8.9 mg/dL (8.4-10.2); Carbon Dioxide 28 mmol/L (22-32); Chloride 109 mmol/L (98-107); Cholesterol 266 mg/dL (140-199); Estimated Glomerular Filt Rate > 60 mL/min (>60); Globulin 2.3 g/dL (1.7-4.1); Glucose 116 mg/dL (80-110); HDL Cholesterol 53 mg/dL (40-60); HEMOLYSIS < 15 (0-50); LDL Cholesterol Calculated 162 mg/dL (<100); Potassium 4.8 mmol/L (3.4-5.1); Sodium 140 mmol/L (137-145); Total Protein 6.5 g/dL (6.3-8.2); Triglycerides 254 mg/dL (35-150)
[2024-02-19 11:40] LABS: Creatinine Urine Random 63.28 mg/dL
[2024-02-19 11:44] LABS: Microalbumin Urine Random 2.5 mg/dL (0-1.6)
[2024-02-19 11:44] LABS: Free T3, Triiodothyronine Free 3.79 pg/mL (2.77-5.27)
[2024-02-19 11:58] LABS: TSH w/ Reflex to FT4 0.47 uIU/mL (0.47-4.68)
== END ==
PROVIDERS: PCP Family Medicine; Referring Provider Family Medicine; Visit Provider Family Medicine
DX: R73.03 Prediabetes (principal); E78.5 Hyperlipidemia, unspecified; E03.9 Hypothyroidism, unspecified; I10 Essential (primary) hypertension; K21.00 Gastro-esophageal reflux disease with esophagitis, without bleeding
CPT/HCPCS: 36415; 80053; 80061; 82043; 82570; 83036; 84443; 84481

== ENCOUNTER → 2024-03-18 10:12 | Outpatient (CLI) | payer OTHER, SELFPAY ==
--- NOTE | 2024-03-18 10:13 | DI.RAD.S_ITS ---
PROCEDURE: XR DEXA AXIAL SKELETON INDICATIONS: Screening for osteoporosis, post menopause COMPARISON: None. FINDINGS: Lumbar Spine: Bone mineral density 1.04 g/cm2, T score -0.1, normal. Left Hip: Bone mineral density 0.867 g/cm2, T score -0.6, normal. Left Femoral Neck: Bone mineral density 0.730 g/cm2, T score -1.1, osteopenia. Right Hip: Bone mineral density 0.933 g/cm2, T score -0.1, normal. Right Femoral Neck: Bone mineral density 0.708 g/cm2, T score -1.3, osteopenia. Fracture Risk Calculation (when applicable): 10-year fracture risk of a major osteoporotic fracture 9.3% and of a hip fracture 1.2%. (T score greater or equal to -1.0 to: NORMAL) (T score from -1.1 to -2.4: OSTEOPENIA) (T score less than or equal to -2.5: OSTEOPOROSIS) IMPRESSION: Osteopenia. Follow-up guidelines as follows: Osteoporosis: Consider a repeat DEXA and Vertebral Fracture Assessment (VFA) exam in 2 years or sooner if medically necessary, to reassess this patient's status. Osteopenia: Consider a repeat DEXA in 2-3 years to reassess this patient's status, or if there is a new clinical indication. Normal: Consider a repeat DEXA in 5 years or sooner, or if there is a new clinical indication. All treatment decisions require clinical judgment and consideration of individual patient factors, including patient preferences, comorbidities, previous drug use, risk factors not captured in the FRAX model (e.g., frailty, falls, vitamin D deficiency, increased bone turnover, interval significant decline in bone density ) and possible under- or over-estimation of fracture risk by FRAX. In addition, the NOF Guide recommends that FDA-approved medical therapies be considered in postmenopausal women and men age >= 50 years with a: * Hip or vertebral (clinical or morphometric) fracture * T-score of <=-2.5 at the spine or hip * Ten-year fracture probability by FRAX of >= 3% for hip fracture or >=20% for major osteoporotic fracture. People with diagnosed cases of osteoporosis or at high risk for fracture should have regular bone mineral density tests. For patients eligible for Medicare, routine testing is allowed once every 2 years. The testing frequency can be increased to one year for patients who have rapidly progressing disease, those who are receiving or discontinuing medical therapy to restore bone mass, or have additional risk factors. Dictated by: Mariano Price M.D. on 03/18/2024 at 13:50 Approved by: Mariano Price M.D. on 03/18/2024 at 13:54
--- NOTE | 2024-03-18 10:13 | DI.US.S_ITS ---
PROCEDURE: US ABDOMEN LIMITED INDICATIONS: RUQ pain TECHNIQUE: Real-time scanning was performed of the abdominal and retroperitoneal organs, with image documentation. COMPARISON: None. FINDINGS: Liver: Increased liver echogenicity with posterior attenuation, most consistent with moderate to severe steatosis. Gallbladder: No gallstones. No wall thickening. No pericholecystic edema. Negative sonographic Cerna's sign. Biliary ducts: Intrahepatic bile ducts are non-dilated. Extrahepatic bile duct caliber measures 2 mm. Normal is 6-7 mm or less in diameter, or 10 mm or less post-cholecystectomy. Pancreas: Visualized portions of the pancreas are sonographically normal. Miscellaneous: No free abdominal fluid. IMPRESSION: No gallbladder pathology. Hepatic steatosis. In the absence of alcohol use or other confounding factors, elevated LFTs may indicate non-alcoholic steatohepatitis (DUARTE). Dictated by: Mariano Price M.D. on 03/18/2024 at 12:06 Approved by: Mariano Price M.D. on 03/18/2024 at 12:06
== END ==
PROVIDERS: PCP Family Medicine; Referring Provider Family Medicine; Visit Provider Family Medicine
DX: Z13.820 Encounter for screening for osteoporosis (principal); M85.89 Other specified disorders of bone density and structure, multiple sites; Z78.0 Asymptomatic menopausal state; K76.0 Fatty (change of) liver, not elsewhere classified; R10.11 Right upper quadrant pain
CPT/HCPCS: 76705; 77080

== ENCOUNTER → 2024-06-02 10:52 | Outpatient (CLI) | payer OTHER, SELFPAY ==
[2024-06-02 13:49] LABS: Cholesterol 235 mg/dL (140-199); HDL Cholesterol 50 mg/dL (40-60); LDL Cholesterol Calculated 133 mg/dL (<100); Triglycerides 262 mg/dL (35-150)
== END ==
LOC: LAB 10:53
PROVIDERS: PCP Family Medicine; Referring Provider Family Medicine; Visit Provider Family Medicine
DX: E78.5 Hyperlipidemia, unspecified (principal)
CPT/HCPCS: 36415; 80061

== ENCOUNTER → 2024-12-08 09:58 | Outpatient (CLI) | payer OTHER, SELFPAY ==
[2024-12-08 10:45] LABS: Alanine Aminotransferase 43 IU/L (<35); Albumin 4.2 g/dL (3.5-5.0); Albumin Globulin Ratio 2.1 (1.0-2.8); Alkaline Phosphatase 58 U/L (38-126); Aspartate Aminotransferase 34 IU/L (14-36); BUN Creatinine Ratio 21.4 (6-22); Bilirubin Total 0.9 mg/dL (0.2-1.3); Blood Urea Nitrogen 15 mg/dL (7-17); Calcium 9.4 mg/dL (8.4-10.2); Carbon Dioxide 25 mmol/L (22-32); Chloride 107 mmol/L (98-107); Cholesterol 230 mg/dL (140-199); Estimated Glomerular Filt Rate > 60 mL/min (>60); Glucose 115 mg/dL (80-110); HDL Cholesterol 63 mg/dL (40-60); HEMOLYSIS < 15 (0-50); LDL Cholesterol Calculated 116 mg/dL (<100); Potassium 4.6 mmol/L (3.4-5.1); Sodium 139 mmol/L (137-145); Total Protein 6.2 g/dL (6.3-8.2); Triglycerides 256 mg/dL (35-150)
[2024-12-08 15:45] LABS: Creatinine Urine Random 65.85 mg/dL
[2024-12-08 15:49] LABS: Microalbumin Urine Random 4.1 mg/dL (0-1.6)
== END ==
PROVIDERS: PCP Family Medicine; Referring Provider Family Medicine; Visit Provider Family Medicine
DX: I10 Essential (primary) hypertension (principal); E78.5 Hyperlipidemia, unspecified
CPT/HCPCS: 36415; 80053; 80061; 82043; 82570

== ENCOUNTER → 2025-05-30 11:40 | Outpatient (CLI) | payer OTHER, SELFPAY ==
[2025-05-30 12:30] LABS: Influenza A - CEPHEID Flu A NEGATIVE (NEGATIVE); Influenza B - CEPHEID Flu B NEGATIVE (NEGATIVE)
[2025-05-30 12:31] LABS: COVID-19 CEPHEID 4-PLEX PCR POSITIVE (Negative)
== END ==
PROVIDERS: PCP Family Medicine; Visit Provider Chiropractor
DX: R05.1 Acute cough (principal)
CPT/HCPCS: 87637

== ENCOUNTER → 2025-06-07 10:45 | Outpatient (CLI) | payer OTHER, SELFPAY ==
[2025-06-07 11:40] LABS: Add Manual Diff / Slide Review NO; Hematocrit 42.3 % (36-46); Hemoglobin 14.4 g/dL (12.0-16.0); Lymphocytes Absolute Auto 1300 /uL (1100-4500); Mean Corpuscular HGB Conc 34.1 % (30-36); Mean Corpuscular Hemoglobin 30.4 PG (26-34); Mean Corpuscular Volume 89.2 fL (80-100); Platelet Count 309 X10^3/uL (150-400)
[2025-06-07 12:02] LABS: Cholesterol 216 mg/dL (140-199); HDL Cholesterol 49 mg/dL (40-60); Triglycerides 250 mg/dL (35-150)
== END ==
PROVIDERS: PCP Family Medicine; Referring Provider Family Medicine; Visit Provider Family Medicine
DX: E78.5 Hyperlipidemia, unspecified (principal); M85.80 Other specified disorders of bone density and structure, unspecified site; I10 Essential (primary) hypertension
CPT/HCPCS: 36415; 80061; 85025

== ENCOUNTER → 2025-06-08 11:24 | Outpatient (CLI) | payer OTHER, SELFPAY ==
[2025-06-08 12:03] LABS: Free T3, Triiodothyronine Free 4.91 pg/mL (2.77-5.27); Free T4, Direct Thyroxine 1.20 ng/dL (0.78-2.19)
[2025-06-08 12:16] LABS: Thyroid Stimulating Hormone 0.400 uIU/mL (0.47-4.68)
== END ==
PROVIDERS: PCP Family Medicine; Visit Provider Family Medicine
DX: E78.5 Hyperlipidemia, unspecified (principal)
CPT/HCPCS: 84439; 84443; 84481

== ENCOUNTER → 2025-07-01 15:03 | Outpatient (CLI) | payer OTHER, SELFPAY ==
--- NOTE | 2025-07-01 15:04 | DI.MG.S_ITS ---
MM screening mammo BI: 07/01/2025. BI-RADS: 2 CLINICAL: 70-year old female for bilateral screening mammogram. Tyrer-Cuzick lifetime risk of 12.2%. Current reported family history of breast cancer: mother. The patient had a prior right breast biopsy. PRIOR EXAMS 09/10/2023, 09/04/2022, 08/29/2021, 08/28/2020. MAMMOGRAPHY TECHNIQUE: 2D and 3D (tomosynthesis) digital mammographic views obtained, with additional images as needed for full coverage. Current study was also evaluated with a Computer Aided Detection (CAD) system. DENSITY C. The breasts are heterogeneously dense, which may obscure small masses. MAMMOGRAPHY FINDINGS Right: Benign-appearing calcifications and post-surgical changes noted on the right. There are no suspicious masses, calcifications, or other findings in the breast. Left: Benign-appearing calcifications noted on the left. There are no suspicious masses, calcifications, or other findings in the breast. IMPRESSION: * No evidence of malignancy with benign findings. RECOMMENDATIONS Bilateral * Annual screening mammography. OVERALL ASSESSMENT CATEGORY BI-RADS-2: Benign. The [employer] recommends annual screening mammography beginning at age 40 for women with average risk of breast cancer. ELECTRONICALLY SIGNED: Suresh Abad M.D. on 07/01/2025 at 10:39:10 PM PT Interpreting Station ID: [id number]
== END ==
LOC: MAMMO 15:03
PROVIDERS: PCP Family Medicine; Referring Provider Family Medicine; Visit Provider Family Medicine
DX: Z12.31 Encounter for screening mammogram for malignant neoplasm of breast (principal); R92.333 Mammographic heterogeneous density, bilateral breasts; R92.1 Mammographic calcification found on diagnostic imaging of breast; Z80.3 Family history of malignant neoplasm of breast
CPT/HCPCS: 77063; 77067

== ENCOUNTER → 2025-08-04 12:16 | Outpatient (CLI) | payer OTHER, SELFPAY ==
--- NOTE | 2025-08-04 12:19 | DI.RAD.S_ITS ---
PROCEDURE: ORTHO-XR FOOT 3V WB RIGHT INDICATIONS: BILAT FOOT PAIN TECHNIQUE: 3 weight-bearing views acquired of the foot. COMPARISON: None. FINDINGS: Bones: There is moderate hallux valgus with weight bearing. Yekn-pt-hwzehtvy osteoarthritic changes are noted throughout right foot more notably involving 1st MTP joint. Well-defined dorsal calcaneal enthesophyte is seen. No fractures or dislocations. No suspicious bony lesions. Soft tissues: No suspicious soft tissue calcifications. IMPRESSION: Moderate hallux valgus. [id number] right foot joint osteoarthritis. No acute fracture or dislocation. Well-defined dorsal calcaneal enthesophyte. Dictated by: Nathaniel Damon M.D. on 08/04/2025 at 20:44 Approved by: Nathaniel Damon M.D. on 08/04/2025 at 20:45
--- NOTE | 2025-08-04 12:20 | DI.RAD.S_ITS ---
PROCEDURE: ORTHO-XR FOOT 3V WB LEFT COMPARISON: None. INDICATIONS: BILAT FOOT PAIN Technique: 3 weightbearing views of left foot were obtained. FINDINGS: Bones and joints: There is pes planus and moderate hallux valgus. [id number] left foot joint osteoarthritic changes are seen most notably involving 1st MTP joint. No acute fracture or dislocation. No suspicious bony lesions. Prominent dorsal calcaneal enthesophyte is seen. Soft tissues: No abnormal soft tissue calcifications. IMPRESSION: Moderate hallux valgus and pes planus with [id number] left foot joint osteoarthritis as above. No fracture or dislocation. Dictated by: Nathaniel Damon M.D. on 08/04/2025 at 20:45 Approved by: Nathaniel Damon M.D. on 08/04/2025 at 20:50
== END ==
PROVIDERS: PCP Family Medicine; Referring Provider Family Medicine; Visit Provider Podiatrist Foot & Ankle Surgery
DX: M19.071 Primary osteoarthritis, right ankle and foot (principal); M19.072 Primary osteoarthritis, left ankle and foot; M20.11 Hallux valgus (acquired), right foot; M20.12 Hallux valgus (acquired), left foot; M77.31 Calcaneal spur, right foot; M77.32 Calcaneal spur, left foot; M21.42 Flat foot [pes planus] (acquired), left foot; M79.671 Pain in right foot; M79.672 Pain in left foot
CPT/HCPCS: 73630